=== PATIENT | female | born 1960 | race Caucasian/White ===

== ENCOUNTER → 2018-11-10 16:13 | Outpatient (CLI) | payer OTHER, SELFPAY ==
[2018-11-12 23:04] LABS: Fecal Immunochemical Test NOT DETECTED
== END ==
PROVIDERS: PCP Registered Nurse; Visit Provider Registered Nurse
DX: Z12.11 Encounter for screening for malignant neoplasm of colon (principal)
CPT/HCPCS: 82274

== ENCOUNTER → 2018-11-11 07:23 | Outpatient (CLI) | payer OTHER, SELFPAY ==
[2018-11-11 08:09] LABS: Alanine Aminotransferase 19 IU/L (9-52); Albumin 4.3 g/dL (3.5-5.0); Albumin Globulin Ratio 1.4 (1.0-2.8); Alkaline Phosphatase 54 U/L (38-126); Aspartate Aminotransferase 24 IU/L (14-36); Bilirubin Total 0.7 mg/dL (0.2-1.3); Blood Urea Nitrogen 14 mg/dL (7-17); Calcium 9.6 mg/dL (8.4-10.2); Carbon Dioxide 29 mmol/L (22-32); Chloride 104 mmol/L (98-107); Cholesterol 225 mg/dL (140-199); Estimated Glomerular Filt Rate 57.1 mL/min (>60); Glucose 88 mg/dL (70-100); HDL Cholesterol 67 mg/dL (40-60); HEMOLYSIS < 15 (0-50); LDL Cholesterol Calculated 144 mg/dL (<100); Sodium 143 mmol/L (137-145); Total Protein 7.3 g/dL (6.3-8.2); Triglycerides 70 mg/dL (35-150)
[2018-11-11 10:00] LABS: TSH w/ Reflex to FT4 9.36 uIU/mL (0.47-4.68)
[2018-11-11 10:44] LABS: Free T4, Direct Thyroxine 0.94 ng/dL (0.78-2.19)
== END ==
PROVIDERS: PCP Registered Nurse; Visit Provider Registered Nurse
DX: Z00.00 Encounter for general adult medical examination without abnormal findings (principal); E03.9 Hypothyroidism, unspecified
CPT/HCPCS: 36415; 80053; 80061; 84439; 84443

== ENCOUNTER → 2020-06-14 10:07 | Outpatient (CLI) | payer OTHER, SELFPAY ==
[2020-06-14 11:01] LABS: Alanine Aminotransferase 17 IU/L (<35); Albumin 4.4 g/dL (3.5-5.0); Albumin Globulin Ratio 1.6 (1.0-2.8); Alkaline Phosphatase 66 U/L (38-126); Aspartate Aminotransferase 32 IU/L (14-36); BUN Creatinine Ratio 16.5 (6-22); Bilirubin Total 0.8 mg/dL (0.2-1.3); Blood Urea Nitrogen 15 mg/dL (7-17); Calcium 9.4 mg/dL (8.4-10.2); Carbon Dioxide 28 mmol/L (22-32); Chloride 104 mmol/L (98-107); Cholesterol 231 mg/dL (140-199); Estimated Glomerular Filt Rate > 60.0 mL/min (>60); Globulin 2.8 g/dL (1.7-4.1); Glucose 89 mg/dL (70-100); HDL Cholesterol 73 mg/dL (40-60); HEMOLYSIS < 15 (0-50); LDL Cholesterol Calculated 144 mg/dL (<100); Potassium 4.3 mmol/L (3.4-5.1); Sodium 137 mmol/L (137-145); Total Protein 7.2 g/dL (6.3-8.2); Triglycerides 72 mg/dL (35-150)
[2020-06-14 11:28] LABS: Thyroid Stimulating Hormone 10.1 uIU/mL (0.47-4.68)
[2020-06-15 16:51] LABS: Free T4, Direct Thyroxine 1.16 ng/dL (0.78-2.19)
== END ==
PROVIDERS: PCP Registered Nurse; Referring Provider Registered Nurse; Visit Provider Registered Nurse
DX: R89.9 Unspecified abnormal finding in specimens from other organs, systems and tissues (principal); E78.5 Hyperlipidemia, unspecified; E03.9 Hypothyroidism, unspecified
CPT/HCPCS: 36415; 80053; 80061; 84439; 84443

== ENCOUNTER → 2020-08-07 15:42 | Outpatient (CLI) | payer OTHER, SELFPAY ==
--- NOTE | 2020-08-07 15:44 | DI.MG.S_ITS ---
BILATERAL DIGITAL SCREENING MAMMOGRAM 3D/2D WITH CAD: 08/07/2020 CLINICAL: Routine screening. Family history of breast cancer. Comparison is made to exams dated: 02/09/2018 mammogram, 08/11/2017 mammogram, 07/30/2017 mammogram, and 08/23/2015 mammogram - [facility]. The tissue of both breasts is heterogeneously dense. This may lower the sensitivity of mammography. Current study was also evaluated with a Computer Aided Detection (CAD) system. No significant masses, calcifications, or other findings are seen in either breast. There has been no significant interval change. IMPRESSION: NEGATIVE There is no mammographic evidence of malignancy. A 1 year screening mammogram is recommended. This exam was interpreted at Station ID: [id number]. NOTE: For mammograms, a report in lay terms will be sent to the patient. Approximately 15% of breast malignancies will not be visualized mammographically. In the management of a palpable breast mass, a negative mammogram must not discourage biopsy of a clinically suspicious lesion. Electronically Signed By: Edwina rowland/nivia:08/07/2020 16:32:18 letter sent: Normal Exam ACR BI-RADS Category 1: Negative 3341F
== END ==
PROVIDERS: PCP Registered Nurse; Referring Provider Registered Nurse; Visit Provider Registered Nurse
DX: Z12.31 Encounter for screening mammogram for malignant neoplasm of breast (principal); Z80.3 Family history of malignant neoplasm of breast
CPT/HCPCS: 77063; 77067

== ENCOUNTER → 2020-08-10 12:30 | Outpatient (CLI) | payer OTHER, SELFPAY ==
[2020-08-13 13:06] LABS: Fecal Immunochemical Test Negative (Negative)
== END ==
PROVIDERS: PCP Registered Nurse; Referring Provider Registered Nurse; Visit Provider Registered Nurse
DX: Z12.11 Encounter for screening for malignant neoplasm of colon (principal)
CPT/HCPCS: 82274

== ENCOUNTER → 2020-11-03 12:57 | Outpatient (CLI) | payer OTHER, SELFPAY ==
--- NOTE | 2020-11-03 12:58 | DI.RAD.S_ITS ---
PROCEDURE: XR SHOULDER LT MIN 2V INDICATIONS: L should pain post fall, limited ROM TECHNIQUE: 2 views of the shoulder were acquired. COMPARISON: [facility], CR, XR HUMERUS LT 2V, 11/03/2020, 13:01. FINDINGS: Bones: Comminuted left humeral head fracture. No dislocations. No suspicious bony lesions. Visualized ribs appear intact. Soft tissues: No suspicious soft tissue calcifications. IMPRESSION: Comminuted left humeral head fracture. Dictated by: Ellis Delgado M.D. on 11/03/2020 at 13:30 Approved by: Ellis Delgado M.D. on 11/03/2020 at 13:30
--- NOTE | 2020-11-03 12:58 | DI.RAD.S_ITS ---
PROCEDURE: XR HUMERUS LT 2V INDICATIONS: L should pain post fall, limited ROM TECHNIQUE: 2 views of the humerus were acquired. COMPARISON: [facility], CR, XR SHOULDER LT MIN 2V, 11/03/2020, 13:01. FINDINGS: Bones: Comminuted left humeral head fracture. Mild displacement. No dislocations. No suspicious bony lesions. Soft tissues: No suspicious soft tissue calcifications. IMPRESSION: Comminuted left humeral head fracture. Dictated by: Ellis Delgado M.D. on 11/03/2020 at 12:55 Approved by: Ellis Delgado M.D. on 11/03/2020 at 12:57
== END ==
PROVIDERS: PCP Registered Nurse; Referring Provider Nurse Practitioner; Visit Provider Nurse Practitioner
DX: M25.512 Pain in left shoulder (principal); S42.292A Other displaced fracture of upper end of left humerus, initial encounter for closed fracture
CPT/HCPCS: 73030; 73060

== ENCOUNTER 2020-11-03 13:15 | Emergency (ER) | payer OTHER, SELFPAY ==
[2020-11-03 13:34] VITALS: BP 98/51; PULSE 69; RESP 14; TEMP 37.1; O2SAT 100; BMI 28.3
--- NOTE | 2020-11-03 14:37 | ED.UPPEXIN ---
HPI - Extremity Injury (Upper) General Chief Complaint: Extremity Injury, Upper Stated Complaint: shoulder fracture, sent by [employer] Time Seen by Provider: 11/03/20 14:36 Source: patient Mode of arrival: Ambulatory Limitations: no limitations History of Present Illness HPI narrative: This 60-year-old female comes emergency department with complaint of fracture to the left shoulder. Patient was walking today on a smooth flat paved trail when she fell on her left shoulder. She denies injury elsewhere. She denies any head, neck or back pain. Patient states no numbness or tingling in her extremity but she does have pain radiating down words. She went to the walk-in clinic had an x-ray which showed a left humeral head fracture. The clinic has already contacted Orthopedic surgery but they did not have the appropriate splint the walk-in clinic. Related Data Home Medications Medication Instructions Recorded Confirmed No Known Home Medications 11/05/18 06/19/20 Allergies Allergy/AdvReac Type Severity Reaction Status Date / Time Sulfa (Sulfonamide AdvReac Mild NAUSEA Verified 11/03/20 13:34 Antibiotics) [SULFA (SULFONAMIDE ANTIBIOTICS)] Review of Systems Review of Systems ROS Unobtainable: All systems reviewed & are unremarkable except as noted in HPI and below Patient History Medical History No significant medical problems Surgical History Status post tonsillectomy and adenoidectomy Family History Father Prostate cancer Mother Alcoholism Grandmother Cancer Social History Smoking Status: Former smoker alcohol intake: never substance use type: does not use Smoking Status: Former smoker alcohol intake frequency: holidays/special occasions only Substance Use Type: does not use Exam Narrative Exam Narrative: GEN: Patient appears in mild distress. Patient initially standing while applying splint. Tolerated well. HEAD: No evidence of trauma, no raccoon/Tran sign. NECK: Nontender, painless range of motion, trachea midline Negative Nexus criteria, there is no mid line tenderness, distracting injury, altered mental status, neuro deficit, recent EtOH. EYES: PERRLA, EOMI ENT: External inspection normal, trachea is midline. RESP: Chest is nontender and has symmetric movement, breath sounds are normal no crackles, wheezes or rales, no tachypnea. CVS: Heart sounds are normal, no murmur noted, No JVD. ABG/GI: Nontender, soft, normal bowel sounds, no distention, no organomegaly NEURO: Oriented AOx3, neuro is grossly intact, sensation and motor is normal all 4 extremities moving, cranial nerves II through XII are intact, GCS is 15 PSYCH: Normal mood and affect SKIN: Intact, warm and dry, no crepitus and without decubitus BACK: No CVA tenderness, no vertebral tenderness, no step-off's, no crepitus EXT: Pain left shoulder, patient has decreased range of motion at the shoulder on the left. 2+ left pulse machine washer equal. Initial Vital Signs Initial Vital Signs: Vital Signs Temperature 98.7 F 11/03/20 13:34 Pulse Rate 69 11/03/20 13:34 Respiratory Rate 14 11/03/20 13:34 Blood Pressure 98/51 L 11/03/20 13:34 Pulse Oximetry 100 11/03/20 13:34 Scores GCS [place] coma scale eye opening: Spontaneous [place] coma scale verbal response: Orientated [place] coma scale motor response: Obey commands [place] coma scale total score: 15 Course Vital Signs Vital signs: Vital Signs - 8 hr 11/03/20 13:34 Temperature 98.7 F Pulse Rate 69 Respiratory Rate 14 Blood Pressure 98/51 L Pulse Oximetry 100 MDM - Extremity Injury (Upper) Imaging Data Extremity x-ray #1: Radiologist's Impression: Lillian Grace 60 F [address] [id number] ReportSigned Patient: Lillian Grace AMR#: [id number]: [id number]:[id number]/Sex: 60 / FDate of Service: 11/03/20Loc: RADAccession Number: [id number] Procedure: XR shoulder LT min 2V Ordering Provider: Lizz Saals PROCEDURE: XR SHOULDER LT MIN 2V INDICATIONS: L should pain post fall, limited ROM TECHNIQUE: 2 views of the shoulder were acquired. COMPARISON: [facility], CR, XR HUMERUS LT 2V, 11/03/2020, 13:01. FINDINGS: Bones: Comminuted left humeral head fracture. No dislocations. No suspicious bony lesions. Visualized ribs appear intact. Soft tissues: No suspicious soft tissue calcifications. IMPRESSION: Comminuted left humeral head fracture. Dictated by: Ellis Delgado M.D. on 11/03/2020 at 13:30 Approved by: Ellis Delgado M.D. on 11/03/2020 at 13:30 Extremity x-ray #2: Radiologist's Impression: [facility] [place] [id number] ReportSigned Patient: Lillian Grace AMR#: [id number]: [id number]:[id number]/Sex: 60 / FDate of Service: 11/03/20Loc: RADAccession Number: [id number] Procedure: XR humerus LT 2V Ordering Provider: Lizz Salas PROCEDURE: XR HUMERUS LT 2V INDICATIONS: L should pain post fall, limited ROM TECHNIQUE: 2 views of the humerus were acquired. COMPARISON: [facility], , XR SHOULDER LT MIN 2V, 11/03/2020, 13:01. FINDINGS: Bones: Comminuted left humeral head fracture. Mild displacement. No dislocations. No suspicious bony lesions. Soft tissues: No suspicious soft tissue calcifications. IMPRESSION: Comminuted left humeral head fracture. Dictated by: Ellis Delgado M.D. on 11/03/2020 at 12:55 Approved by: Ellis Delgado M.D. on 11/03/2020 at 12:57 [facility] Narrative Medical decision making narrative: Splint was placed by nursing in the department, patient was rechecked afterwards and is neurovascularly intact. Patient follow-up was set up by walk-in clinic and patient was given referral. She defers any pain medications here or prescription. Discharge Plan Departure Patient Disposition: Home Clinical Impression: Closed fracture of head of left humerus Instructions: DI for Humeral Fracture Activity Restrictions/Additional Instructions: Call Thursday morning to set up follow-up with Orthopedic surgery. You may take up to a 1000 mg of acetaminophen or Tylenol every 8 hours as needed for pain, for maximum of 3000 mg in 24 hours. If this is not adequate you may add ibuprofen up to 800 mg every 8 hours as needed for pain, for maximum of 2400 mg in 24 hours Splint Care: Keep splint clean and dry. Elevated affected body part to decrease swelling. OK to use ice pack on the affected body part. Use for 15-20 minutes each time, for 5-6x per day. If you develop worsening pain, numbness, tingling, discoloration of the affected body part, loosen the splint by loosening the KISHA wrap, and either see your doctor for an urgent re-assessment, or return to the Emergency Department. Return to the Emergency Department for any new or worsening symptoms. Prescriptions: No Action No Known Home Medications RF: 0 Referrals: Rosa Campo ARNP [Primary Care Provider] - Madhav Lucas MD [Physician] -
--- NOTE | 2020-11-03 15:11 | PC.NURSE ---
Pt was seen at the [facility] by Lizz Salas DNP. Referred here for specific Humeral splint. XR's and follow up with ORtho already set up by Lizz Salas. Splint applied and given. pt refusing pain medications.
== END 2020-11-03 15:12 | disposition home or self-care (01) ==
PROVIDERS: Emergency Provider Emergency Medicine; PCP Registered Nurse
DX: S42.292A Other displaced fracture of upper end of left humerus, initial encounter for closed fracture (principal); W19.XXXA Unspecified fall, initial encounter
CPT/HCPCS: 73030; 73060; 99281

== ENCOUNTER → 2020-11-07 08:09 | Outpatient (CLI) | payer OTHER, SELFPAY ==
--- NOTE | 2020-11-07 | DI.CT.S_ITS ---
PROCEDURE: CT UE LT WO CON INDICATIONS: displaced fracture of upper end of left humerus TECHNIQUE: Noncontrast 1-1.5 mm thick sections acquired from the acromioclavicular joint to the inferior scapula, with coronal and sagittal reformatting. COMPARISON: None. FINDINGS: Image quality: Excellent. Bones: Comminuted fracture of the proximal humerus including the surgical neck, greater tuberosity, and with impacted appearance. There is anatomic alignment at the glenohumeral and AC joint space. Soft tissues: Numerous shotty axillary lymph nodes. Glenohumeral hemoeffusion. There is diffuse subcutaneous edema and contusion. IMPRESSION: Severely comminuted fracture of the proximal humerus as above. Dictated by: Micheal Garcia M.D. on 11/07/2020 at 9:34 Approved by: Micheal Garcia M.D. on 11/07/2020 at 9:39
== END ==
PROVIDERS: PCP Registered Nurse; Referring Provider Orthopaedic Surgery Adult Reconstructive Orthopaedic Surgery; Visit Provider Orthopaedic Surgery Adult Reconstructive Orthopaedic Surgery
DX: S42.202A Unspecified fracture of upper end of left humerus, initial encounter for closed fracture (principal)
CPT/HCPCS: 73200

== ENCOUNTER → 2021-08-16 08:32 | Outpatient (CLI) | payer OTHER, SELFPAY ==
[2021-08-19 13:09] LABS: Fecal Immunochemical Test Negative (Negative)
== END ==
PROVIDERS: PCP Registered Nurse; Referring Provider Registered Nurse; Visit Provider Registered Nurse
DX: Z12.11 Encounter for screening for malignant neoplasm of colon (principal); Z12.12 Encounter for screening for malignant neoplasm of rectum
CPT/HCPCS: 82274

== ENCOUNTER → 2021-10-27 09:57 | Outpatient (CLI) | payer OTHER, SELFPAY ==
[2021-10-27 10:50] LABS: COVID19 -Nasal RAPID Negative (Negative)
== END ==
PROVIDERS: PCP Registered Nurse; Visit Provider Physician Assistant
DX: Z20.822 Contact with and (suspected) exposure to COVID-19 (principal); R05.9 Cough, unspecified; R51.9 Headache, unspecified
CPT/HCPCS: 87635

== ENCOUNTER → 2022-12-15 11:06 | Outpatient (CLI) | payer OTHER, SELFPAY ==
[2022-12-16 07:51] LABS: Fecal Immunochemical Test Negative (Negative)
== END ==
PROVIDERS: PCP Family Medicine; Referring Provider Family Medicine; Visit Provider Family Medicine
DX: Z12.11 Encounter for screening for malignant neoplasm of colon (principal)
CPT/HCPCS: 82274

== ENCOUNTER → 2023-02-10 18:45 | Outpatient (CLI) | payer OTHER, SELFPAY | PROVIDERS: PCP Family Medicine; Visit Provider Physician Assistant | DX: N39.0 Urinary tract infection, site not specified (principal) | CPT/HCPCS: 87077; 87086; 87186 ==

== ENCOUNTER → 2023-06-24 16:09 | Outpatient (CLI) | payer OTHER, SELFPAY ==
--- NOTE | 2023-06-24 16:10 | DI.MG.S_ITS ---
BILATERAL DIGITAL SCREENING MAMMOGRAM 3D/2D WITH CAD: 06/24/2023 CLINICAL: Routine screening. Family history of breast cancer. Comparison is made to exams dated: 08/07/2020 mammogram, 07/30/2017 mammogram, and 08/23/2015 mammogram - [facility]. There are scattered areas of fibroglandular density in both breasts (category b / 25%-50% glandular tissue). Current study was also evaluated with a Computer Aided Detection (CAD) system. No significant masses, calcifications, or other findings are seen in either breast. There has been no significant interval change. IMPRESSION: NEGATIVE There is no mammographic evidence of malignancy. A 1 year screening mammogram is recommended. Based on the Tyrer Cuzick model (a risk assessment model) the patient's lifetime risk is 14.3% and her 10 year risk is 6.1%. According to the ACR, ACS, and NCCN guidelines, an annual breast MRI exam along with mammogram is recommended if the patient's lifetime risk is 20% or greater. This exam was interpreted at Station ID: [id number]. NOTE: For mammograms, a report in lay terms will be sent to the patient. Approximately 15% of breast malignancies will not be visualized mammographically. In the management of a palpable breast mass, a negative mammogram must not discourage biopsy of a clinically suspicious lesion. Electronically Signed By: Clay poole/nivia:07/05/2023 14:03:17 letter sent: Normal Exam ACR BI-RADS Category 1: Negative 3341F
== END ==
PROVIDERS: PCP Family Medicine; Referring Provider Family Medicine; Visit Provider Family Medicine
DX: Z12.31 Encounter for screening mammogram for malignant neoplasm of breast (principal)
CPT/HCPCS: 77063; 77067

== ENCOUNTER → 2023-11-17 15:21 | Outpatient (CLI) | payer OTHER, SELFPAY ==
--- NOTE | 2023-11-17 15:22 | DI.RAD.S_ITS ---
PROCEDURE: XR HIP W PEL IF DONE LT 2V INDICATIONS: left hip/upper leg discomfort ongoing x years TECHNIQUE: AP pelvis with lateral view of the left hip. COMPARISON: None. FINDINGS: Bones: No acute fractures or dislocations. Pelvic ring appears intact. No suspicious bony lesions. Milder spurring is seen at the lateral acetabula bilaterally. Soft tissues: The visualized bowel gas pattern is normal. No suspicious soft tissue calcifications. IMPRESSION: Mild bilateral hip osteoarthrosis. Approved by: William Maya M.D. on 11/17/2023 at 21:24
== END ==
PROVIDERS: PCP Family Medicine; Referring Provider Family Medicine; Visit Provider Family Medicine
DX: M79.605 Pain in left leg (principal); M16.0 Bilateral primary osteoarthritis of hip
CPT/HCPCS: 73502

== ENCOUNTER → 2023-11-29 11:23 | Outpatient (CLI) | payer OTHER, SELFPAY ==
[2023-12-29 06:36] LABS: Fecal Immunochemical Test Negative (Negative)
== END ==
PROVIDERS: Family Medicine; PCP Family Medicine; Visit Provider Nurse Practitioner Family
DX: N39.0 Urinary tract infection, site not specified (principal)
CPT/HCPCS: 82274; 87077; 87086; 87186

== ENCOUNTER 2024-03-16 09:45 | Outpatient (RCR) | payer OTHER, SELFPAY ==
--- NOTE | 2024-02-08 17:30 | PT.OIE ---
Current Diagnoses Osteoarthritis of hip, unspecified (02/08/24) Pain in left hip (02/08/24) Stiffness of left hip, not elsewhere classified (02/08/24) Past Medical History (Last Reviewed 11/16/23 @ 08:53 by Flor Alves RN) Humeral head fracture (~2020) No significant medical problems Past Surgical History (Last Reviewed 11/16/23 @ 08:53 by Flor Alves RN) Status post tonsillectomy and adenoidectomy Visit Care Team Role Provider Type Emily Rhoades DO Family Provider Physician Primary Care Provider Specialty: Medical Address: [address] [place] [address], [address], [address] Email: [email or web address] Arianne Cook DO Attending Provider Physician Referring Provider Specialty: Family Practice Address: [address] [place] [address], [id number] Email: [email or web address] Physical Therapy Initial Evaluation PT-OP-A Visit Information Start: 02/08/24 17:34 Freq: Status: Active Protocol: Document 02/08/24 16:45 DCW (Rec: 02/08/24 17:45 DCW [id number]) Out-Patient Physical Therapy Visit Information Visit Information Visit Type Initial Evaluation Visit Start Time 16:45 Visit Stop Time 17:25 Visit Number 1 Number of [employer] MANAGER Visits 0 Evaluation Information Evaluation Date 02/08/24 PT-OP-B Current Condition Start: 02/08/24 17:34 Freq: Status: Active Protocol: Document 02/08/24 16:45 DCW (Rec: 02/08/24 17:45 DCW [id number]) Current Condition History of Current Condition Onset Date One year history Current Complaints Pain in lateral left hip with extended walking or upon first rising History of Current Condition Pt is a 63 year old female presenting with a one year history of left hip pain and stiffness. Pt notes there was no initial injury, it's just been building up over time. Pt notes she typically walks 3 -5 miles a day, and when she gets much further than that or goes uphill, she begins to have pain along the outside of her left hip. Will also sometimes hurt when she first gets up after sitting for an extended period of time. Notes she does some stretching, unable to say how long she typically holds the stretch. Prior Treatments and Tests Hip X-ray: IMPRESSION: Mild bilateral hip osteoarthrosis. per William Maya M.D. on Treatment Goals Patient/Caregiver Goals If I get anywhere close to 10 miles, I really have to stop. PT-OP-C Subjective Start: 02/08/24 17:34 Freq: Status: Active Protocol: Document 02/08/24 16:45 DCW (Rec: 02/08/24 17:45 DCW [id number]) OP-PT Subjective Patient Comments Patient Comments Maybe it's just part of aging , but it really is annoying me . Patient Questionnaires Lower Extremity Functional Scale LEFS Score 49/80 = 61.25% LEFS Impairment 20 to 39% Impaired (Score 48- 62) OP-PT Pain Assessment Location Left Lateral Hip Intensity 5 Scale Used Numeric (0 - 10) Frequency Occasional PT-OP-F Manual Assessment Start: 02/08/24 17:34 Freq: Status: Active Protocol: Document 02/08/24 16:45 DCW (Rec: 02/08/24 17:49 DCW [id number]) Manual Assessments Soft Tissue Assessment Soft Tissue Mobility Assessment Mild-moderate tone L TFL/ITB, Piriformis, Hamstring Joint Mobility Assessment Joint Mobility Assessment L acetabular joint mobility WNL PROM PT-OP-K Range of Motion Start: 02/08/24 17:34 Freq: Status: Active Protocol: Document 02/08/24 16:45 DCW (Rec: 02/08/24 17:49 DCW [id number]) Hip Goniometric Range of Motion Hip Left Passive Hip ROM WFL Yes Testing Position Supine Comments No limitations to mobility PT-OP-L Special Tests Start: 02/08/24 17:34 Freq: Status: Active Protocol: Document 02/08/24 16:45 DCW (Rec: 02/08/24 17:49 DCW [id number]) Special Tests Hip Special Tests Dominick Test Results Negative Straight Leg Raise Test Results Negative Scour Test Test Results Negative Piriformis Test Results Negative KAR Test Results Negative Knee Special Tests Stefan's Test Test Results Negative PT-OP-M Strength Start: 02/08/24 17:34 Freq: Status: Active Protocol: Document 02/08/24 16:45 DCW (Rec: 02/08/24 17:49 DCW [id number]) Hip Strength Hip Manual Muscle Testing Right Flexion (L2) 4+ Good+ Extension (S1) 4+ Good+ Abduction 4+ Good+ Adduction 4+ Good+ External Rotation 4+ Good+ Internal Rotation 4+ Good+ Left Flexion (L2) 4 Good Extension (S1) 4+ Good+ Abduction 4+ Good+ Adduction 4+ Good+ External Rotation 4+ Good+ Internal Rotation 4+ Good+ Comments Mild increased pain with resisted left flexion PT-OP-Q Treatments Start: 02/08/24 17:34 Freq: Status: Active Protocol: Document 02/08/24 16:45 DCW (Rec: 02/08/24 17:45 DCW [id number]) Therapeutic Exercises Supine Exercises Piriformis Supine Exercise Name Figure-4, knee to opposite shoulder Side left ITB Supine Exercise Name ITB stretch /c strap Side left Hamstring Supine Exercise Name Hamstring stretch /c strap Side left Sitting Exercises Piriformis Sitting Exercise Name Seated figure-4 Side left PT-OP-T Assessment and Plan Start: 02/08/24 17:34 Freq: Status: Active Protocol: Document 02/08/24 16:45 DCW (Rec: 02/09/24 09:38 DCW [id number]) Physical Therapy Assessment Rehab Potential Rehabilitation Potential Good Evaluation Complexity Number of Personal Factors/Comorbidities 1-2 Number of Body Systems Impaired 1-2 Clinical Presentation at Evaluation Stable Impairments Impairments Activity Tolerance,Functional Activities,Functional Mobility ,Pain,Soft Tissue Mobility, Tone Goals Two Impairment Pt experiences hip pain when walking >five miles throughout the day [employer] Tender Goal (LTG) Pt to report ability to ambulate 7+ miles during the day without increased left hip pain LTG Duration 03/09/24 One Impairment Pt does not have an appropriate home exercise program Short Term Goal (STG) Pt to be independent and compliant with an appropriate HEP STG Duration 02/23/24 Assessment Summary Assessment Pt presents with signs and symptoms consistent with general increased tone/muscle tightness along lateral and posterior left hip. Unable to replicate any of pt's main complaints with testing, which was unremarkable today. Pt repeatedly noted she largely just felt tight. Occasionally stretches at home , including single KtC and standing hamstring stretches. Reviewed importance of holding stretch 30-40 seconds, as well as instructing pt in ITB and piriformis stretching. Pt will likely benefit from implementation of appropriate HEP/stretching, [id number] may also benefit from further therapeutic intervention including STM, joint mobilization, and gait assessment. Pt agreeable to comply with HEP for the upcoming week, and return for follow-up with and ongoing questions, concerns, or problems. Physical Therapy Plan Frequency and Duration Frequency of Treatment 1-2x/week Plan of Care Start Date 02/08/24 Plan of Care End Date 03/09/24 Therapeutic Interventions Therapeutic Interventions Home Exercise Program,Joint Mobilizations,Manual Therapy, Neuromuscular Re-education, Patient/Caregiver Education, Self-Care/Home Management,Soft Tissue Mobilization, Therapeutic Activities, Therapeutic Exercises Next Visit Focus/Plan Next Note Type Treatment Note Next Visit Plan Further stretching if needed, STM, gait assessment
--- NOTE | 2024-02-08 17:30 | PT.OPPOC ---
Physical, Occupational & Speech Therapy At [facility] Current Diagnoses Osteoarthritis of hip, unspecified (02/08/24) Pain in left hip (02/08/24) Stiffness of left hip, not elsewhere classified (02/08/24) Visit Care Team Role Provider Type Emily Rhoades DO Family Provider Physician Primary Care Provider Specialty: Medical Address: [address] [place] [address], [address], [place], [address] Email: [email or web address] Arianne Cook DO Attending Provider Physician Referring Provider Specialty: Family Practice Address: [address] [place] [address], [address], [place], [address] Email: [email or web address] Plan Of Care PT-OP-T Assessment and Plan Start: 02/08/24 17:34 Freq: Status: Active Protocol: Document 02/08/24 16:45 DCW (Rec: 02/09/24 09:38 DCW [id number]) Physical Therapy Assessment Rehab Potential Rehabilitation Potential Good Evaluation Complexity Number of Personal Factors/Comorbidities 1-2 Number of Body Systems Impaired 1-2 Clinical Presentation at Evaluation Stable Impairments Impairments Activity Tolerance,Functional Activities,Functional Mobility ,Pain,Soft Tissue Mobility, Tone Goals Two Impairment Pt experiences hip pain when walking >five miles throughout the day Shelter Goal (LTG) Pt to report ability to ambulate 7+ miles during the day without increased left hip pain LTG Duration 03/09/24 One Impairment Pt does not have an appropriate home exercise program Short Term Goal (STG) Pt to be independent and compliant with an appropriate HEP STG Duration 02/23/24 Assessment Summary Assessment Pt presents with signs and symptoms consistent with general increased tone/muscle tightness along lateral and posterior left hip. Unable to replicate any of pt's main complaints with testing, which was unremarkable today. Pt repeatedly noted she largely just felt tight. Occasionally stretches at home , including single KtC and standing hamstring stretches. Reviewed importance of holding stretch 30-40 seconds, as well as instructing pt in ITB and piriformis stretching. Pt will likely benefit from implementation of appropriate HEP/stretching, [id number] may also benefit from further therapeutic intervention including STM, joint mobilization, and gait assessment. Pt agreeable to comply with HEP for the upcoming week, and return for follow-up with and ongoing questions, concerns, or problems. Physical Therapy Plan Frequency and Duration Frequency of Treatment 1-2x/week Plan of Care Start Date 02/08/24 Plan of Care End Date 03/09/24 Therapeutic Interventions Therapeutic Interventions Home Exercise Program,Joint Mobilizations,Manual Therapy, Neuromuscular Re-education, Patient/Caregiver Education, Self-Care/Home Management,Soft Tissue Mobilization, Therapeutic Activities, Therapeutic Exercises Next Visit Focus/Plan Next Note Type Treatment Note Next Visit Plan Further stretching if needed, STM, gait assessment Plan of Care Dates Plan of Care Start Date 02/08/24 Plan of Care End Date 03/09/24 Electronically Signed by: Loyd Land, PT 02/09/24 0939 If you are in agreement with this Plan of Care, please return a signed and dated copy. I have reviewed this Plan of Care and certify that the skilled therapy services above are required to meet the patient?s needs. Physician Signature Date Printed Name and Credentials Clinical Instructor Signature Printed Name and Credentials
--- NOTE | 2024-02-17 16:32 | PT.OTN ---
Current Diagnoses Osteoarthritis of hip, unspecified (02/17/24) Pain in left hip (02/17/24) Stiffness of left hip, not elsewhere classified (02/17/24) Physical Therapy Treatment Note PT-OP-A Visit Information Start: 02/08/24 17:34 Freq: Status: Active Protocol: Document 02/17/24 16:00 DCW (Rec: 02/17/24 16:32 DCW [id number]) Out-Patient Physical Therapy Visit Information Visit Information Visit Type Treatment Note Visit Start Time 16:00 Visit Stop Time 16:30 Visit Number 2 Number of DISTANCE LEARNING TECHNICIAN Visits 0 PT-OP-B Current Condition Start: 02/08/24 17:34 Freq: Status: Active Protocol: Document 02/08/24 16:45 DCW (Rec: 02/08/24 17:45 DCW [id number]) Current Condition History of Current Condition Onset Date One year history Current Complaints Pain in lateral left hip with extended walking or upon first rising History of Current Condition Pt is a 63 year old female presenting with a one year history of left hip pain and stiffness. Pt notes there was no initial injury, it's just been building up over time. Pt notes she typically walks 3 -5 miles a day, and when she gets much further than that or goes uphill, she begins to have pain along the outside of her left hip. Will also sometimes hurt when she first gets up after sitting for an extended period of time. Notes she does some stretching, unable to say how long she typically holds the stretch. Prior Treatments and Tests Hip X-ray: IMPRESSION: Mild bilateral hip osteoarthrosis. per William Maya M.D. on Treatment Goals Patient/Caregiver Goals If I get anywhere close to 10 miles, I really have to stop. PT-OP-C Subjective Start: 02/08/24 17:34 Freq: Status: Active Protocol: Document 02/17/24 16:00 DCW (Rec: 02/17/24 16:32 DCW [id number]) OP-PT Subjective Patient Comments Patient Comments The stretching is working on loosening things up, I can't say it's affected my walking yet. PT-OP-F Manual Assessment Start: 02/08/24 17:34 Freq: Status: Active Protocol: Document 02/08/24 16:45 DCW (Rec: 02/08/24 17:49 DCW [id number]) Manual Assessments Soft Tissue Assessment Soft Tissue Mobility Assessment Mild-moderate tone L TFL/ITB, Piriformis, Hamstring Joint Mobility Assessment Joint Mobility Assessment L acetabular joint mobility WNL PROM PT-OP-K Range of Motion Start: 02/08/24 17:34 Freq: Status: Active Protocol: Document 02/08/24 16:45 DCW (Rec: 02/08/24 17:49 DCW [id number]) Hip Goniometric Range of Motion Hip Left Passive Hip ROM WFL Yes Testing Position Supine Comments No limitations to mobility PT-OP-L Special Tests Start: 02/08/24 17:34 Freq: Status: Active Protocol: Document 02/08/24 16:45 DCW (Rec: 02/08/24 17:49 DCW [id number]) Special Tests Hip Special Tests Dominick Test Results Negative Straight Leg Raise Test Results Negative Scour Test Test Results Negative Piriformis Test Results Negative KAR Test Results Negative Knee Special Tests Steafn's Test Test Results Negative PT-OP-M Strength Start: 02/08/24 17:34 Freq: Status: Active Protocol: Document 02/08/24 16:45 DCW (Rec: 02/08/24 17:49 DCW [id number]) Hip Strength Hip Manual Muscle Testing Right Flexion (L2) 4+ Good+ Extension (S1) 4+ Good+ Abduction 4+ Good+ Adduction 4+ Good+ External Rotation 4+ Good+ Internal Rotation 4+ Good+ Left Flexion (L2) 4 Good Extension (S1) 4+ Good+ Abduction 4+ Good+ Adduction 4+ Good+ External Rotation 4+ Good+ Internal Rotation 4+ Good+ Comments Mild increased pain with resisted left flexion PT-OP-Q Treatments Start: 02/08/24 17:34 Freq: Status: Active Protocol: Document 02/17/24 16:00 DCW (Rec: 02/17/24 16:32 DCW [id number]) Therapeutic Exercises Supine Exercises Piriformis Supine Exercise Name Figure-4, knee to opposite shoulder Side left ITB Supine Exercise Name ITB stretch /c strap Side left Hamstring Supine Exercise Name Hamstring stretch /c strap Side left Sidelying Exercises Reverse Clamshell Sidelying Exercise Name Reverse Clamshell Clamshell Sidelying Exercise Name Clamshell PT-OP-T Assessment and Plan Start: 02/08/24 17:34 Freq: Status: Active Protocol: Document 02/17/24 16:00 DCW (Rec: 02/17/24 16:32 DCW [id number]) Physical Therapy Assessment Impairments Impairments Activity Tolerance,Functional Activities,Functional Mobility ,Pain,Soft Tissue Mobility, Tone Goals Two Impairment Pt experiences hip pain when walking >five miles throughout the day Aquatics Manager Goal (LTG) Pt to report ability to ambulate 7+ miles during the day without increased left hip pain LTG Duration 03/09/24 One Impairment Pt does not have an appropriate home exercise program Short Term Goal (STG) Pt to be independent and compliant with an appropriate HEP STG Duration 02/23/24 Assessment Summary Assessment Pt feeling good regarding HEP, feels it is focusing on her areas of concern appropriately . Pt would like to have follow -up in ~1 month in order to make sure she is progressing as expected. No further questions or concerns at this time. Physical Therapy Plan Frequency and Duration Frequency of Treatment 1-2x/week Plan of Care Start Date 02/08/24 Plan of Care End Date 03/09/24 Therapeutic Interventions Therapeutic Interventions Home Exercise Program,Joint Mobilizations,Manual Therapy, Neuromuscular Re-education, Patient/Caregiver Education, Self-Care/Home Management,Soft Tissue Mobilization, Therapeutic Activities, Therapeutic Exercises Next Visit Focus/Plan Next Note Type Treatment Note Next Visit Plan Further stretching if needed, STM, gait assessment
--- NOTE | 2024-03-16 10:04 | PT.OTN ---
Current Diagnoses Osteoarthritis of hip, unspecified (03/16/24) Pain in left hip (03/16/24) Stiffness of left hip, not elsewhere classified (03/16/24) Physical Therapy Treatment Note PT-OP-A Visit Information Start: 02/08/24 17:34 Freq: Status: Active Protocol: Document 03/16/24 09:45 DCW (Rec: 03/16/24 10:04 DCW [id number]) Out-Patient Physical Therapy Visit Information Visit Information Visit Type Discharge Summary Visit Start Time 09:45 Visit Stop Time 09:58 Visit Number 3 Number of RIVET HOLE MACHINE OPERATOR Visits 0 Evaluation Information Evaluation Date 02/08/24 PT-OP-B Current Condition Start: 02/08/24 17:34 Freq: Status: Active Protocol: Document 02/08/24 16:45 DCW (Rec: 02/08/24 17:45 DCW [id number]) Current Condition History of Current Condition Onset Date One year history Current Complaints Pain in lateral left hip with extended walking or upon first rising History of Current Condition Pt is a 63 year old female presenting with a one year history of left hip pain and stiffness. Pt notes there was no initial injury, it's just been building up over time. Pt notes she typically walks 3 -5 miles a day, and when she gets much further than that or goes uphill, she begins to have pain along the outside of her left hip. Will also sometimes hurt when she first gets up after sitting for an extended period of time. Notes she does some stretching, unable to say how long she typically holds the stretch. Prior Treatments and Tests Hip X-ray: IMPRESSION: Mild bilateral hip osteoarthrosis. per William Maya M.D. on Treatment Goals Patient/Caregiver Goals If I get anywhere close to 10 miles, I really have to stop. PT-OP-C Subjective Start: 02/08/24 17:34 Freq: Status: Active Protocol: Document 03/16/24 09:45 DCW (Rec: 03/16/24 10:04 DCW [id number]) OP-PT Subjective Patient Comments Patient Comments I feel like I'm on the right track, everything is feeling a lot better. Pt has no questions or concerns regarding her HEP. PT-OP-F Manual Assessment Start: 02/08/24 17:34 Freq: Status: Active Protocol: Document 03/16/24 09:45 DCW (Rec: 03/16/24 10:04 DCW [id number]) Manual Assessments Soft Tissue Assessment Soft Tissue Mobility Assessment Mild tone L TFL/ITB, Piriformis, Hamstring PT-OP-K Range of Motion Start: 02/08/24 17:34 Freq: Status: Active Protocol: Document 02/08/24 16:45 DCW (Rec: 02/08/24 17:49 DCW [id number]) Hip Goniometric Range of Motion Hip Left Passive Hip ROM WFL Yes Testing Position Supine Comments No limitations to mobility PT-OP-L Special Tests Start: 02/08/24 17:34 Freq: Status: Active Protocol: Document 02/08/24 16:45 DCW (Rec: 02/08/24 17:49 DCW [id number]) Special Tests Hip Special Tests Dominick Test Results Negative Straight Leg Raise Test Results Negative Scour Test Test Results Negative Piriformis Test Results Negative KAR Test Results Negative Knee Special Tests Stefan's Test Test Results Negative PT-OP-M Strength Start: 02/08/24 17:34 Freq: Status: Active Protocol: Document 03/16/24 09:45 DCW (Rec: 03/16/24 10:04 DCW [id number]) Hip Strength Hip Manual Muscle Testing Right Flexion (L2) 4+ Good+ Extension (S1) 4+ Good+ Abduction 4+ Good+ Adduction 4+ Good+ External Rotation 4+ Good+ Internal Rotation 4+ Good+ Left Flexion (L2) 4+ Good+ Extension (S1) 4+ Good+ Abduction 4+ Good+ Adduction 4+ Good+ External Rotation 4+ Good+ Internal Rotation 4+ Good+ PT-OP-Q Treatments Start: 02/08/24 17:34 Freq: Status: Active Protocol: Document 03/16/24 09:45 DCW (Rec: 03/16/24 10:04 DCW [id number]) Therapeutic Exercises Supine Exercises Piriformis Supine Exercise Name Figure-4, knee to opposite shoulder Side left Hamstring Supine Exercise Name Hamstring stretch Side left PT-OP-T Assessment and Plan Start: 02/08/24 17:34 Freq: Status: Active Protocol: Document 03/16/24 09:45 DCW (Rec: 03/16/24 10:04 DCW [id number]) Physical Therapy Assessment Impairments Impairments Activity Tolerance,Functional Activities,Functional Mobility ,Pain,Soft Tissue Mobility, Tone Goals Two Impairment Pt experiences hip pain when walking >five miles throughout the day Care Home Goal (LTG) Pt to report ability to ambulate 7+ miles during the day without increased left hip pain LTG Duration Met One Impairment Pt does not have an appropriate home exercise program Short Term Goal (STG) Pt to be independent and compliant with an appropriate HEP STG Duration Met Progress Towards Goals Progress Towards Goals Goals Met Assessment Summary Assessment Pt doing very well with HEP, no further questions, complaints, or problems. Pt feels she is doing well at this time, agreeable to discharge. Physical Therapy Plan Frequency and Duration Frequency of Treatment 1x/Week Plan of Care Start Date 03/16/24 Plan of Care End Date 03/17/24 Therapeutic Interventions Therapeutic Interventions Home Exercise Program,Joint Mobilizations,Manual Therapy, Neuromuscular Re-education, Patient/Caregiver Education, Self-Care/Home Management,Soft Tissue Mobilization, Therapeutic Activities, Therapeutic Exercises Discharge Physical Therapy Discharge Reasons Goals Met Next Visit Focus/Plan Next Note Type Discharge Summary
--- NOTE | 2024-03-16 10:04 | PT.OPPOC ---
Physical, Occupational & Speech Therapy At [facility] Current Diagnoses Osteoarthritis of hip, unspecified (03/16/24) Pain in left hip (03/16/24) Stiffness of left hip, not elsewhere classified (03/16/24) Visit Care Team Role Provider Type Emily Rhoades DO Family Provider Physician Primary Care Provider Specialty: Medical Address: [address] [place] [address], [address], [place], [address] Email: [email or web address] Arianne Cook DO Attending Provider Physician Referring Provider Specialty: Family Practice Address: [address] [place] [address], [address], [place], [address] Email: [email or web address] Plan Of Care PT-OP-T Assessment and Plan Start: 02/08/24 17:34 Freq: Status: Active Protocol: Document 03/16/24 09:45 DCW (Rec: 03/16/24 10:04 DCW [id number]) Physical Therapy Assessment Impairments Impairments Activity Tolerance,Functional Activities,Functional Mobility ,Pain,Soft Tissue Mobility, Tone Goals Two Impairment Pt experiences hip pain when walking >five miles throughout the day Metal Furniture Assembly Supervisor Goal (LTG) Pt to report ability to ambulate 7+ miles during the day without increased left hip pain LTG Duration Met One Impairment Pt does not have an appropriate home exercise program Short Term Goal (STG) Pt to be independent and compliant with an appropriate HEP STG Duration Met Progress Towards Goals Progress Towards Goals Goals Met Assessment Summary Assessment Pt doing very well with HEP, no further questions, complaints, or problems. Pt feels she is doing well at this time, agreeable to discharge. Physical Therapy Plan Frequency and Duration Frequency of Treatment 1x/Week Plan of Care Start Date 03/16/24 Plan of Care End Date 03/17/24 Therapeutic Interventions Therapeutic Interventions Home Exercise Program,Joint Mobilizations,Manual Therapy, Neuromuscular Re-education, Patient/Caregiver Education, Self-Care/Home Management,Soft Tissue Mobilization, Therapeutic Activities, Therapeutic Exercises Discharge Physical Therapy Discharge Reasons Goals Met Next Visit Focus/Plan Next Note Type Discharge Summary Plan of Care Dates Plan of Care Start Date 03/16/24 Plan of Care End Date 03/17/24 Electronically Signed by: Loyd Land, PT 03/16/24 1004 If you are in agreement with this Plan of Care, please return a signed and dated copy. I have reviewed this Plan of Care and certify that the skilled therapy services above are required to meet the patient?s needs. Physician Signature Date Printed Name and Credentials Clinical Instructor Signature Printed Name and Credentials
== END 2024-08-10 10:37 | disposition home or self-care (01) ==
LOC: PHYS 09:45
PROVIDERS: Family Provider Family Medicine; PCP Family Medicine; Referring Provider Family Medicine; Visit Provider Family Medicine
DX: M16.9 Osteoarthritis of hip, unspecified (principal); M25.652 Stiffness of left hip, not elsewhere classified; M25.552 Pain in left hip
CPT/HCPCS: 97110; 97161

== ENCOUNTER → 2024-08-12 17:02 | Outpatient (CLI) | payer OTHER, SELFPAY ==
--- NOTE | 2024-08-12 17:04 | DI.MG.S_ITS ---
BILATERAL DIGITAL SCREENING MAMMOGRAM 3D/2D WITH CAD: 08/12/2024 CLINICAL: Routine screening. Family history of breast cancer. Comparison is made to exams dated: 06/24/2023 mammogram, 08/07/2020 mammogram, and 02/09/2018 mammogram - [facility]. There are scattered areas of fibroglandular density (category b / 25%-50% glandular tissue). Current study was also evaluated with a Computer Aided Detection (CAD) system. No significant masses, calcifications, or other findings are seen in either breast. There has been no significant interval change. IMPRESSION: NEGATIVE There is no mammographic evidence of malignancy. A 1 year screening mammogram is recommended. Based on the Tyrer Cuzick model (a risk assessment model) the patient's lifetime risk is 13.6% and her 10 year risk is 6.2%. According to the ACR, ACS, and NCCN guidelines, an annual breast MRI exam along with mammogram is recommended if the patient's lifetime risk is 20% or greater. This exam was interpreted at Station ID: [id number]. NOTE: For mammograms, a report in lay terms will be sent to the patient. Approximately 15% of breast malignancies will not be visualized mammographically. In the management of a palpable breast mass, a negative mammogram must not discourage biopsy of a clinically suspicious lesion. Electronically Signed By: Ellis queen/nivia:08/13/2024 08:54:57 letter sent: Normal Exam ACR BI-RADS Category 1: Negative
== END ==
LOC: MAMMO 17:04
PROVIDERS: Family Provider Family Medicine; PCP Family Medicine; Referring Provider Family Medicine; Visit Provider Family Medicine
DX: Z12.31 Encounter for screening mammogram for malignant neoplasm of breast (principal); Z80.3 Family history of malignant neoplasm of breast
CPT/HCPCS: 77063; 77067

== ENCOUNTER 2024-08-30 12:08 | Day surgery (SDC) | payer OTHER, SELFPAY ==
[2024-08-30 13:00] VITALS: BP 105/64; PULSE 62; RESP 16; TEMP 36.1; O2SAT 99
--- NOTE | 2024-08-30 13:32 | PM.HP.1 ---
History of Present Illness History of Present Illness Date Patient Seen: 08/30/24 Time Patient Seen: 13:32 Chief complaint: Colonoscopy Narrative: 64-year-old woman here for 1st time screening colonoscopy. No abdominal concerns today. No family history of colon cancer [facility] Medical History Humeral head fracture (~2020) No significant medical problems Surgical History Status post tonsillectomy and adenoidectomy Family History Father Prostate cancer Mother Alcoholism Grandmother Cancer Social History Smoking Status: Former smoker Tobacco: How many years used: 2 alcohol intake: former substance use type: does not use Meds Home Medications and Allergies Home Medications Medication Instructions Recorded Confirmed Type peg 3350-electrolytes 236 240 ml PO Q10M #4,000 mL 07/25/24 Rx gram-22.74 gram-6.74 gram-5.86 gram solution (Golytely) Allergies Allergy/AdvReac Type Severity Reaction Status Date / Time Sulfa (Sulfonamide AdvReac Mild NAUSEA Verified 11/29/23 11:13 Antibiotics) [SULFA (SULFONAMIDE ANTIBIOTICS)] Exam Vital Signs (past 8 hours): - 08/30/24 13:00 Temperature 96.9 F L Pulse Rate 62 Respiratory Rate 16 Blood Pressure 105/64 Pulse Oximetry 99 Oxygen Delivery Method Room Air Oxygen Delivery Method Room Air Narrative Exam Narrative: General adult woman alert oriented no acute distress Chest nonlabored respiration Extremities warm well perfused Assessment & Plan Assessment & Plan narrative: The patient requires colorectal screening and colonoscopy is recommended. Technical details were discussed. Risks, benefits, alternatives explained. Risks including but not limited to myocardial infarction, aspiration, bleeding, pain, missed lesion, incomplete examination, need for further radiographic studies, intestinal injury, and need for major abdominal surgery were discussed. All questions were answered to their satisfaction, and they are in agreement with this plan. Time-Based Coding :: [TOTAL MINUTES] spent with patient and on the chart (including review of chart, obtaining history, exam, reviewing outside data, placing orders, documenting exam and treatment plan, and counseling patient) on [DATE].
--- NOTE | 2024-08-30 13:35 | P.OP.COLON_ITS ---
Operative Date/Time/Diagnoses Date of procedure: 08/30/24 Time of procedure: 13:35 Pre-op diagnosis: Colorectal screening Procedure & Clinicians Study performed: Screening colonoscopy Same procedure as scheduled: Yes Indications: Screening Surgeon: Henry Da Silva Procedure Notes Procedure in detail: The history and physical was performed/updated and the patient is ASA class is 2. The procedure was discussed in detail with the patient. Potential risks complications including infection, bleeding, missed diagnosis, perforation, need for surgery, and were explained. Their questions were answered and informed consent was obtained. Patient was brought to the procedure room and placed standard monitoring equipment. The patient's vital signs were monitored continuously throughout the entire procedure. Prior to starting time-out was performed. The patient was placed in the left lateral recumbent position. Procedural sedation was administered by anesthesia. Examination began with a thorough inspection of the perianal area there was no evidence of fissures, fistulae, external hemorrhoids or cutaneous malignancy. The colonoscopy scope was then placed into the anal canal and was advanced to the cecum, which was identified by the ileocecal valve, the appendiceal orifice and the confluence of the taenia. The scope was then slowly withdrawn examining colon thoroughly in all directions, irrigating it of any residual stool. The scope was retroflexed within the rectum The patient tolerated the procedure well. They will be discharged once criteria are met. The prep was of good/excellent quality. The withdrawl time was 7 minutes. FINDINGS * Unremarkable colonoscopy. Normal healthy colonic mucosa without mass or polyps. Specimen(s): none sent Impression: Normal colonoscopy Post-procedure Recommendations: Colonoscopy in 10 years Disposition: same day surgery
[2024-08-30 14:02] VITALS: BP 83/55; PULSE 61; RESP 16; TEMP 36.3; O2SAT 96
[2024-08-30 14:06] VITALS: BP 98/60; PULSE 60; RESP 15; O2SAT 96
[2024-08-30 14:12] VITALS: BP 99/64; PULSE 63; RESP 12; O2SAT 100
[2024-08-30 14:16] VITALS: BP 106/68; PULSE 55; RESP 12; TEMP 36.4; O2SAT 100
== END 2024-08-30 14:26 | disposition home or self-care (01) ==
PROVIDERS: Family Provider Family Medicine; PCP Family Medicine; Referring Provider Surgery; Visit Provider Surgery
PROC: 0DJD8ZZ Inspection of Lower Intestinal Tract, Via Natural or Artificial Opening Endoscopic (ICD-10-PCS; CPT 45378; principal; 2024-08-30 13:15)
DX: Z12.11 Encounter for screening for malignant neoplasm of colon (principal)
CPT/HCPCS: 45378; J2704

== ENCOUNTER → 2025-09-14 07:11 | Outpatient (CLI) | payer OTHER, SELFPAY ==
--- NOTE | 2025-09-14 07:12 | DI.MG.S_ITS ---
MM screening mammo BI: 09/14/2025. BI-RADS: 1 CLINICAL: 65-year old female for bilateral screening mammogram. Tyrer-Cuzick lifetime risk of 13.7%. No personal or first-degree family history of breast cancer. Current reported family history of breast cancer: paternal grandmother. PRIOR EXAMS 08/12/2024, 06/24/2023, 08/07/2020, 02/09/2018. MAMMOGRAPHY TECHNIQUE: 2D and 3D (tomosynthesis) digital mammographic views obtained, with additional images as needed for full coverage. Current study was also evaluated with a Computer Aided Detection (CAD) system. DENSITY C. The breasts are heterogeneously dense, which may obscure small masses. MAMMOGRAPHY FINDINGS Bilateral: No suspicious mass, asymmetry, microcalcification, or other abnormality seen. IMPRESSION: * No evidence of malignancy. RECOMMENDATIONS Bilateral * Annual screening mammography. OVERALL ASSESSMENT CATEGORY BI-RADS-1: Negative. The [employer] recommends annual screening mammography beginning at age 40 for women with average risk of breast cancer. ELECTRONICALLY SIGNED: Ewa Gonzales M.D. on 09/14/2025 at 05:11:37 PM PT Interpreting Station ID: [id number]
== END ==
LOC: MAMMO 07:12
PROVIDERS: Family Provider Family Medicine; PCP Family Medicine; Referring Provider Family Medicine; Visit Provider Family Medicine
DX: Z12.31 Encounter for screening mammogram for malignant neoplasm of breast (principal); R92.333 Mammographic heterogeneous density, bilateral breasts; Z80.3 Family history of malignant neoplasm of breast
CPT/HCPCS: 77063; 77067